=== PATIENT | female | born 1960 | race African-American/Black ===

== ENCOUNTER 2018-05-29 09:06 | Emergency (ER) | payer MEDICAID, MEDICARE, OTHER ==
[~2018-05-29] VITALS: Ht 172.7 cm; Wt 120.0 kg
[~2018-05-29 09:06] MED LIST: CODEINE; IBUPROFEN
[2018-05-29 12:05] LABS: PARTIAL THROMBOPLASTIN TIME 28.9 sec (23.4-31.0); PROTHROMBIN TIME 10.4 sec (9.1-11.1)
[2018-05-29 12:10] LABS: BASOPHILS % 1.3 % (0.0-2.0); EOSINOPHILS % 1.2 % (0.0-5.0); HEMATOCRIT. 35.1 % (36.0-48.0); HEMOGLOBIN. 11.4 g/dL (12.0-16.0); LYMPHOCYTES % 23.2 % (20.0-50.0); MEAN CORPUSCULAR HEMOGLOBIN 28.9 pg (28.0-32.0); MEAN CORPUSCULAR VOLUME 89.1 fL (81.0-99.0); MEAN PLATELET VOLUME 10.2 fl (7.4-10.4); MONOCYTES % 7.8 % (2.0-8.0); NEUTROPHILS % 66.5 % (40.0-76.0); PLATELET 360 x1000/uL (130-400); RED BLOOD CELL COUNT 3.94 mill/uL (4.2-5.4); RED CELL DISTRIBUTION WIDTH 14.8 % (11.6-14.6)
[2018-05-29 12:15] LABS: CHLORIDE 102 mEq/L (98-107)
[2018-05-29 13:00] VITALS: BP 122/55
[2018-05-29] MEDS ORDERED: IOHEXOL-300 100 ML BOTTLE ONE (16:06)
== END 2018-05-29 15:52 | disposition home or self-care (01) ==
LOC: ER 09:31
DX: R10.9 Unspecified abdominal pain (principal); F12.10 Cannabis abuse, uncomplicated; Z87.891 Personal history of nicotine dependence; Z79.899 Other long term (current) drug therapy
CPT/HCPCS: 36415; 74177; 80053; 85025; 85610; 85730; 86850; 86900; 86901; 99284; Q9967

== ENCOUNTER 2018-07-08 09:30 | Day surgery (SDC) | payer MEDICARE ==
[2018-07-08] VITALS (17 sets, daily range): BP systolic 119–163; BP diastolic 56–99
[~2018-07-08] VITALS: Ht 170.2 cm; Wt 97.1 kg
[2018-07-08] MEDS ORDERED: FENTANYL CITRATE/PF 50MCG/ML 2ML VIAL ONE (09:44)
[2018-07-08] MEDS ORDERED: SODIUM BICARBONATE 4% (2.4MEQ) 5ML VIAL IV ONE (09:46)
[2018-07-08] MEDS ORDERED: LIDOCAINE HCL 1% 20ML VIAL (Pyxis) INJ ONE (09:46)
[2018-07-08] MEDS ORDERED: TRAM300C3 PO (10:32)
[2018-07-08] MEDS ORDERED: FENTANYL CITRATE/PF 50MCG/ML 2ML VIAL IV ONE ×2 (10:45→11:15)
[2018-07-08] MEDS ORDERED: FENTANYL CITRATE/PF 50MCG/ML 2ML VIAL IV SCH ×2 (11:30)
== END 2018-07-08 15:00 | disposition home or self-care (01) ==
LOC: RAD 09:30
PROVIDERS: ATTEND Internal Medicine Pulmonary Disease
DX: D49.1 Neoplasm of unspecified behavior of respiratory system (principal); F12.90 Cannabis use, unspecified, uncomplicated; Z79.1 Long term (current) use of non-steroidal anti-inflammatories (NSAID); Z79.899 Other long term (current) drug therapy; Z87.891 Personal history of nicotine dependence; Z98.890 Other specified postprocedural states
CPT/HCPCS: 32405; 71045; 77012; 88305; 99152; 99153; J3010; J3490; J7050; G0500

== ENCOUNTER → 2018-08-28 | Day surgery (SDC) | payer MEDICARE ==
[2018-08-28] VITALS (18 sets, daily range): BP systolic 107–125; BP diastolic 51–81
[~2018-08-28] VITALS: Ht 170.2 cm; Wt 88.5 kg
[~2018-08-28] MED LIST changes: +CEFAZOLIN 1000MG PREMIX 50 ML IV ONE; +FENTANYL CITRATE/PF 50MCG/ML 2ML VIAL IV ONE; +FENTANYL CITRATE/PF 50MCG/ML 2ML VIAL ONE; +LIDOCAINE HCL 1% 20ML VIAL (Pyxis) INJ ONE; +LIDOCAINE HCL/EPINEPHRINE 1%-EPI 1:100,000 20 ML VIAL ONE; +SODIUM BICARBONATE 4% (2.4MEQ) 5ML VIAL IV ONE; +TRAM300C3 PO
== END | disposition home or self-care (01) ==
LOC: RAD 08:35
PROVIDERS: ATTEND Internal Medicine Hematology & Oncology
DX: C34.31 Malignant neoplasm of lower lobe, right bronchus or lung (principal); Z79.899 Other long term (current) drug therapy
CPT/HCPCS: 36561; 77001; 99152; 99153; J3010; J3490; J0690; J7050; G0500

== ENCOUNTER → 2018-10-07 | Day surgery (SDC) | payer MEDICARE, MEDICAID, OTHER ==
[~2018-10-07] MED LIST changes: -CEFAZOLIN 1000MG PREMIX 50 ML IV ONE; -FENTANYL CITRATE/PF 50MCG/ML 2ML VIAL IV ONE; -FENTANYL CITRATE/PF 50MCG/ML 2ML VIAL ONE; +IOHEXOL-300 50 ML BOTTLE IV ONE; -LIDOCAINE HCL 1% 20ML VIAL (Pyxis) INJ ONE; -LIDOCAINE HCL/EPINEPHRINE 1%-EPI 1:100,000 20 ML VIAL ONE; +OMEP20CA5 PO; -SODIUM BICARBONATE 4% (2.4MEQ) 5ML VIAL IV ONE; +[UNRECOGNIZED DRUG - REMARK] PO
== END | disposition home or self-care (01) ==
LOC: LAB 09:35
PROVIDERS: ATTEND Internal Medicine Hematology & Oncology
DX: T82.898A Other specified complication of vascular prosthetic devices, implants and grafts, initial encounter (principal); C34.31 Malignant neoplasm of lower lobe, right bronchus or lung; J44.9 Chronic obstructive pulmonary disease, unspecified; Z87.891 Personal history of nicotine dependence; Z79.899 Other long term (current) drug therapy; Y83.8 Other surgical procedures as the cause of abnormal reaction of the patient, or of later complication, without mention of misadventure at the time of the procedure; Y92.89 Other specified places as the place of occurrence of the external cause
CPT/HCPCS: 36010; 75827; Q9967

== ENCOUNTER 2018-11-05 13:45 | Inpatient (IN) | payer MEDICARE, OTHER ==
[2018-11-04 20:00] VITALS: BP 136/71
[~2018-11-05] VITALS: Ht 170.2 cm; Wt 77.1 kg
[2018-11-05 13:45] VITALS: BP 139/94
[~2018-11-05 13:45] MED LIST changes: -CODEINE; -IBUPROFEN; -IOHEXOL-300 50 ML BOTTLE IV ONE
[2018-11-05] MEDS ORDERED: CLONIDINE 0.1MG TABLET PO PRN (15:15)
[2018-11-05] MEDS ORDERED: DEXTROSE 50% WATER 50ML SYRINGE IV PRN (15:15)
[2018-11-05] MEDS: INSULIN LISPRO 100 UNITS/ML SUBCUT SCH ×2 (17:00→20:33)
[2018-11-05] MEDS: BLOOD SUGAR DIAGNOSTIC STRIP TEST SCH ×2 (17:00→20:33)
[2018-11-05] MEDS: HYDROCODONE/ACETAMINOPHEN 5/325MG TABLET PO PRN (17:59)
[2018-11-05 20:00] VITALS: BP 136/71
[2018-11-05] MEDS: FAMOTIDINE 20MG TABLET PO SCH (20:25)
[2018-11-06] MEDS: BLOOD SUGAR DIAGNOSTIC STRIP TEST SCH ×4 (06:17→20:24)
[2018-11-06] MEDS: INSULIN LISPRO 100 UNITS/ML SUBCUT SCH ×4 (06:49→20:24)
[2018-11-06] MEDS: ENOXAPARIN 40MG/0.4ML SYR SUBCUT SCH (08:52)
[2018-11-06] MEDS: FAMOTIDINE 20MG TABLET PO SCH ×2 (08:52→20:17)
[2018-11-06] MEDS: HYDROCODONE/ACETAMINOPHEN 5/325MG TABLET PO PRN ×3 (08:52→20:18)
[2018-11-06] MEDS ORDERED: DOCUSATE SODIUM 100MG CAPSULE PO PRN (10:30)
[2018-11-06] MEDS: ZINC SULFATE 220 MG ( 50 ) CAPSULE PO SCH (11:59)
[2018-11-06] MEDS: ASCORBIC ACID 500 MG TABLET PO SCH (11:59)
[2018-11-06 20:00] VITALS: BP 133/87
[2018-11-07] MEDS: BLOOD SUGAR DIAGNOSTIC STRIP TEST SCH ×4 (06:36→21:15)
[2018-11-07] MEDS: INSULIN LISPRO 100 UNITS/ML SUBCUT SCH ×4 (06:36→21:00)
[2018-11-07 07:45] LABS: BASOPHILS % 0.9 % (0.0-2.0); EOSINOPHILS % 1.8 % (0.0-5.0); HEMATOCRIT. 30.3 % (36.0-48.0); HEMOGLOBIN. 9.9 g/dL (12.0-16.0); LYMPHOCYTES % 10.9 % (20.0-50.0); MEAN CORPUSCULAR HEMOGLOBIN 28.6 pg (28.0-32.0); MEAN CORPUSCULAR VOLUME 87.2 fL (81.0-99.0); MEAN PLATELET VOLUME 7.7 fl (7.4-10.4); NEUTROPHILS % 76.4 % (40.0-76.0); PLATELET 257 x1000/uL (130-400); RED BLOOD CELL COUNT 3.47 mill/uL (4.2-5.4); RED CELL DISTRIBUTION WIDTH 21.3 % (11.6-14.6)
[2018-11-07 07:55] LABS: CHLORIDE 103 mEq/L (98-107)
[2018-11-07 07:56] VITALS: BP 130/85
[2018-11-07 08:02] LABS: TOTAL IRON BINDING CAPACITY 191 ug/dL (250-450)
[2018-11-07] MEDS: FAMOTIDINE 20MG TABLET PO SCH ×2 (08:09→21:15)
[2018-11-07] MEDS: ASCORBIC ACID 500 MG TABLET PO SCH (08:10)
[2018-11-07] MEDS: ENOXAPARIN 40MG/0.4ML SYR SUBCUT SCH (08:10)
[2018-11-07] MEDS: ZINC SULFATE 220 MG ( 50 ) CAPSULE PO SCH (08:10)
[2018-11-07] MEDS: HYDROCODONE/ACETAMINOPHEN 5/325MG TABLET PO PRN ×3 (08:11→17:32)
[2018-11-07 08:14] LABS: FOLIC ACID (FOLATE) SERUM 7.3 ng/mL (>5.38)
[2018-11-07 20:00] VITALS: BP 114/76
[2018-11-08 08:00] VITALS: BP 128/78
[2018-11-08] MEDS: ACETAMINOPHEN 325MG TABLET PO PRN (08:38)
[2018-11-08] MEDS: FAMOTIDINE 20MG TABLET PO SCH ×2 (08:38→20:52)
[2018-11-08] MEDS: ENOXAPARIN 40MG/0.4ML SYR SUBCUT SCH (08:39)
[2018-11-08] MEDS: ZINC SULFATE 220 MG ( 50 ) CAPSULE PO SCH (08:39)
[2018-11-08] MEDS: ASCORBIC ACID 500 MG TABLET PO SCH (08:39)
[2018-11-08] MEDS: INSULIN LISPRO 100 UNITS/ML SUBCUT SCH ×4 (08:44→21:00)
[2018-11-08] MEDS: BLOOD SUGAR DIAGNOSTIC STRIP TEST SCH ×3 (11:37→21:00)
[2018-11-08] MEDS: HYDROCODONE/ACETAMINOPHEN 5/325MG TABLET PO PRN ×2 (16:43→20:54)
[2018-11-08 20:00] VITALS: BP 128/80
[2018-11-09] MEDS: HYDROCODONE/ACETAMINOPHEN 5/325MG TABLET PO PRN ×4 (02:59→21:18)
[2018-11-09] MEDS: BLOOD SUGAR DIAGNOSTIC STRIP TEST SCH ×4 (05:55→21:00)
[2018-11-09 07:57] VITALS: BP 141/95
[2018-11-09] MEDS: ONDANSETRON HCL 4MG TABLET PO PRN (07:57)
[2018-11-09] MEDS: FAMOTIDINE 20MG TABLET PO SCH ×2 (08:50→21:19)
[2018-11-09] MEDS: ASCORBIC ACID 500 MG TABLET PO SCH (08:50)
[2018-11-09] MEDS: ZINC SULFATE 220 MG ( 50 ) CAPSULE PO SCH (08:50)
[2018-11-09] MEDS: ENOXAPARIN 40MG/0.4ML SYR SUBCUT SCH (08:51)
[2018-11-09] MEDS: INSULIN LISPRO 100 UNITS/ML SUBCUT SCH ×4 (08:53→21:00)
[2018-11-09] MEDS ORDERED: POTASSIUM CHLORIDE 20MEQ TABLET SR PO NR (09:45)
[2018-11-09 20:00] VITALS: BP 129/96
[2018-11-10] MEDS: HYDROCODONE/ACETAMINOPHEN 5/325MG TABLET PO PRN ×4 (05:34→19:52)
[2018-11-10] MEDS: FAMOTIDINE 20MG TABLET PO SCH ×2 (05:34→20:41)
[2018-11-10] MEDS: BLOOD SUGAR DIAGNOSTIC STRIP TEST SCH ×4 (06:30→20:43)
[2018-11-10 07:25] LABS: HEMATOCRIT 30.6 % (36.0-48.0); HEMOGLOBIN 10.2 g/dL (12.0-16.0); MEAN CORPUSCULAR HEMOGLOBIN 29.6 pg (28.0-32.0); MEAN CORPUSCULAR VOLUME 88.4 fL (81.0-99.0); PLATELET 292 x1000/uL (130-400); RED BLOOD CELL COUNT 3.46 mill/uL (4.2-5.4); RED CELL DISTRIBUTION WIDTH 20.4 % (11.6-14.6)
[2018-11-10 07:26] LABS: CHLORIDE 102 mEq/L (98-107)
[2018-11-10 07:58] VITALS: BP 130/81
[2018-11-10] MEDS: ZINC SULFATE 220 MG ( 50 ) CAPSULE PO SCH (08:43)
[2018-11-10] MEDS: ONDANSETRON HCL 4MG TABLET PO PRN ×3 (08:43→19:52)
[2018-11-10] MEDS: POTASSIUM CHLORIDE 20MEQ TABLET SR PO SCH (08:43)
[2018-11-10] MEDS: ASCORBIC ACID 500 MG TABLET PO SCH (08:43)
[2018-11-10] MEDS: ENOXAPARIN 40MG/0.4ML SYR SUBCUT SCH (08:43)
[2018-11-10] MEDS: INSULIN LISPRO 100 UNITS/ML SUBCUT SCH ×4 (08:45→20:43)
[2018-11-10 20:00] VITALS: BP 142/89
[2018-11-11] MEDS: ONDANSETRON HCL 4MG TABLET PO PRN ×3 (02:24→12:40)
[2018-11-11] MEDS: HYDROCODONE/ACETAMINOPHEN 5/325MG TABLET PO PRN ×3 (02:30→22:11)
[2018-11-11] MEDS: BLOOD SUGAR DIAGNOSTIC STRIP TEST SCH ×4 (06:19→21:47)
[2018-11-11] MEDS: INSULIN LISPRO 100 UNITS/ML SUBCUT SCH ×4 (06:19→21:00)
[2018-11-11 08:00] VITALS: BP 133/78
[2018-11-11] MEDS: ASCORBIC ACID 500 MG TABLET PO SCH (08:59)
[2018-11-11] MEDS: ZINC SULFATE 220 MG ( 50 ) CAPSULE PO SCH (08:59)
[2018-11-11] MEDS: POTASSIUM CHLORIDE 20MEQ TABLET SR PO SCH (08:59)
[2018-11-11] MEDS: FAMOTIDINE 20MG TABLET PO SCH ×2 (08:59→21:47)
[2018-11-11] MEDS: ENOXAPARIN 40MG/0.4ML SYR SUBCUT SCH (09:00)
[2018-11-11] MEDS ORDERED: ENOXAPARIN 30MG/0.3ML SYR SUBCUT NR (09:45)
[2018-11-11 11:29] LABS: BASOPHILS % 0.9 % (0.0-2.0); EOSINOPHILS % 0.3 % (0.0-5.0); HEMATOCRIT. 31.5 % (36.0-48.0); HEMOGLOBIN. 10.3 g/dL (12.0-16.0); LYMPHOCYTES % 12.1 % (20.0-50.0); MEAN CORPUSCULAR HEMOGLOBIN 28.4 pg (28.0-32.0); MEAN CORPUSCULAR VOLUME 86.9 fL (81.0-99.0); MEAN PLATELET VOLUME 8.3 fl (7.4-10.4); MONOCYTES % 8.2 % (2.0-8.0); NEUTROPHILS % 78.5 % (40.0-76.0); PLATELET 348 x1000/uL (130-400); RED BLOOD CELL COUNT 3.62 mill/uL (4.2-5.4); RED CELL DISTRIBUTION WIDTH 21.2 % (11.6-14.6)
[2018-11-11 11:37] LABS: INR 1.2; PROTHROMBIN TIME 11.9 sec (9.6-11.0)
[2018-11-11 11:40] LABS: CHLORIDE 97 mEq/L (98-107)
[2018-11-11] MEDS ORDERED: METOCLOPRAMIDE HCL 10MG/2ML VIAL IV PRN (15:45)
[2018-11-11 20:00] VITALS: BP 126/78
[2018-11-11] MEDS: ENOXAPARIN 80MG/0.8ML SYR SUBCUT SCH (21:47)
[2018-11-12] MEDS: BLOOD SUGAR DIAGNOSTIC STRIP TEST SCH ×5 (06:19→21:15)
[2018-11-12 08:00] VITALS: BP 143/83
[2018-11-12] MEDS: INSULIN LISPRO 100 UNITS/ML SUBCUT SCH ×4 (09:00→21:00)
[2018-11-12] MEDS: FAMOTIDINE 20MG TABLET PO SCH ×2 (10:03→21:15)
[2018-11-12] MEDS: ZINC SULFATE 220 MG ( 50 ) CAPSULE PO SCH (10:03)
[2018-11-12] MEDS: ASCORBIC ACID 500 MG TABLET PO SCH (10:03)
[2018-11-12] MEDS: POTASSIUM CHLORIDE 20MEQ TABLET SR PO SCH (10:03)
[2018-11-12] MEDS: ENOXAPARIN 80MG/0.8ML SYR SUBCUT SCH ×2 (10:04→21:16)
[2018-11-12] MEDS: ACETAMINOPHEN 325MG TABLET PO PRN (10:04)
[2018-11-12] MEDS: METOCLOPRAMIDE HCL 5MG TABLET PO SCH ×3 (11:21→21:15)
[2018-11-12] MEDS: HYDROCODONE/ACETAMINOPHEN 5/325MG TABLET PO PRN (14:48)
[2018-11-12 20:00] VITALS: BP 146/92
[2018-11-13] MEDS: BLOOD SUGAR DIAGNOSTIC STRIP TEST SCH ×4 (06:00→20:55)
[2018-11-13] MEDS: METOCLOPRAMIDE HCL 5MG TABLET PO SCH ×4 (06:01→20:53)
[2018-11-13] MEDS: INSULIN LISPRO 100 UNITS/ML SUBCUT SCH ×4 (06:01→20:55)
[2018-11-13 08:11] VITALS: BP 132/89
[2018-11-13] MEDS: POTASSIUM CHLORIDE 20MEQ TABLET SR PO SCH (08:21)
[2018-11-13] MEDS: FAMOTIDINE 20MG TABLET PO SCH ×2 (08:21→20:53)
[2018-11-13] MEDS: ENOXAPARIN 80MG/0.8ML SYR SUBCUT SCH (08:21)
[2018-11-13] MEDS: ZINC SULFATE 220 MG ( 50 ) CAPSULE PO SCH (08:21)
[2018-11-13] MEDS: ACETAMINOPHEN 325MG TABLET PO PRN ×2 (08:21→22:36)
[2018-11-13] MEDS: ASCORBIC ACID 500 MG TABLET PO SCH (08:21)
[2018-11-13] MEDS: HYDROCODONE/ACETAMINOPHEN 5/325MG TABLET PO PRN (15:05)
[2018-11-13] MEDS: APIXABAN 5 MG TABLET PO SCH (17:13)
[2018-11-13 20:00] VITALS: BP 138/89
[2018-11-14] MEDS: METOCLOPRAMIDE HCL 5MG TABLET PO SCH ×4 (05:56→20:50)
[2018-11-14] MEDS: BLOOD SUGAR DIAGNOSTIC STRIP TEST SCH ×4 (05:56→20:54)
[2018-11-14] MEDS: INSULIN LISPRO 100 UNITS/ML SUBCUT SCH ×4 (05:58→20:53)
[2018-11-14 07:53] VITALS: BP 129/80
[2018-11-14] MEDS: ASCORBIC ACID 500 MG TABLET PO SCH (08:15)
[2018-11-14] MEDS: POTASSIUM CHLORIDE 20MEQ TABLET SR PO SCH (08:15)
[2018-11-14] MEDS: FAMOTIDINE 20MG TABLET PO SCH ×2 (08:16→20:50)
[2018-11-14] MEDS: APIXABAN 5 MG TABLET PO SCH ×2 (08:16→16:02)
[2018-11-14] MEDS: ZINC SULFATE 220 MG ( 50 ) CAPSULE PO SCH (08:16)
[2018-11-14 09:29] LABS: BASOPHILS % 1.1 % (0.0-2.0); EOSINOPHILS % 0.7 % (0.0-5.0); HEMATOCRIT. 28.9 % (36.0-48.0); HEMOGLOBIN. 9.6 g/dL (12.0-16.0); LYMPHOCYTES % 13.5 % (20.0-50.0); MEAN CORPUSCULAR HEMOGLOBIN 29.3 pg (28.0-32.0); MEAN CORPUSCULAR VOLUME 88.3 fL (81.0-99.0); MEAN PLATELET VOLUME 8.3 fl (7.4-10.4); MONOCYTES % 10.5 % (2.0-8.0); NEUTROPHILS % 74.2 % (40.0-76.0); PLATELET 337 x1000/uL (130-400); RED BLOOD CELL COUNT 3.28 mill/uL (4.2-5.4); RED CELL DISTRIBUTION WIDTH 20.3 % (11.6-14.6)
[2018-11-14 09:33] LABS: CHLORIDE 99 mEq/L (98-107)
[2018-11-14] MEDS: HYDROCODONE/ACETAMINOPHEN 5/325MG TABLET PO PRN (11:59)
[2018-11-14] MEDS: ACETAMINOPHEN 325MG TABLET PO PRN (16:47)
[2018-11-14 20:00] VITALS: BP 118/64
[2018-11-15] MEDS: HYDROCODONE/ACETAMINOPHEN 5/325MG TABLET PO PRN ×3 (01:17→22:47)
[2018-11-15] MEDS: BLOOD SUGAR DIAGNOSTIC STRIP TEST SCH (06:21)
[2018-11-15] MEDS: INSULIN LISPRO 100 UNITS/ML SUBCUT SCH (06:21)
[2018-11-15] MEDS: METOCLOPRAMIDE HCL 5MG TABLET PO SCH ×4 (06:21→20:20)
[2018-11-15 08:00] VITALS: BP 129/84
[2018-11-15] MEDS: APIXABAN 5 MG TABLET PO SCH ×2 (08:15→16:26)
[2018-11-15] MEDS: FAMOTIDINE 20MG TABLET PO SCH ×2 (08:15→20:20)
[2018-11-15] MEDS: ACETAMINOPHEN 325MG TABLET PO PRN (08:15)
[2018-11-15] MEDS: POTASSIUM CHLORIDE 20MEQ TABLET SR PO SCH (08:15)
[2018-11-15] MEDS: ZINC SULFATE 220 MG ( 50 ) CAPSULE PO SCH (08:15)
[2018-11-15] MEDS: ASCORBIC ACID 500 MG TABLET PO SCH (08:15)
[2018-11-15 20:00] VITALS: BP 127/80
[2018-11-16] MEDS: METOCLOPRAMIDE HCL 5MG TABLET PO SCH ×4 (06:06→21:54)
[2018-11-16 08:10] VITALS: BP 133/88
[2018-11-16] MEDS: HYDROCODONE/ACETAMINOPHEN 5/325MG TABLET PO PRN ×3 (08:23→21:59)
[2018-11-16] MEDS: ASCORBIC ACID 500 MG TABLET PO SCH (08:50)
[2018-11-16] MEDS: FAMOTIDINE 20MG TABLET PO SCH ×2 (08:50→21:54)
[2018-11-16] MEDS: POTASSIUM CHLORIDE 20MEQ TABLET SR PO SCH (08:50)
[2018-11-16] MEDS: ZINC SULFATE 220 MG ( 50 ) CAPSULE PO SCH (08:50)
[2018-11-16] MEDS: APIXABAN 5 MG TABLET PO SCH ×2 (08:50→16:25)
[2018-11-16] MEDS ORDERED: ASCO-339 MT (16:21)
[2018-11-16] MEDS ORDERED: TRAM300C3 MT (16:21)
[2018-11-16] MEDS ORDERED: MULT-1195 MT (16:21)
[2018-11-16] MEDS ORDERED: ONDA4TAB5 MT (16:21)
[2018-11-16 20:00] VITALS: BP 150/87
[2018-11-17] MEDS: METOCLOPRAMIDE HCL 5MG TABLET PO SCH ×2 (05:57→11:29)
[2018-11-17 08:04] VITALS: BP 128/91
[2018-11-17] MEDS: POTASSIUM CHLORIDE 20MEQ TABLET SR PO SCH (08:52)
[2018-11-17] MEDS: FAMOTIDINE 20MG TABLET PO SCH (08:52)
[2018-11-17] MEDS: ASCORBIC ACID 500 MG TABLET PO SCH (08:52)
[2018-11-17] MEDS: ZINC SULFATE 220 MG ( 50 ) CAPSULE PO SCH (08:52)
[2018-11-17] MEDS: APIXABAN 5 MG TABLET PO SCH (09:00)
[2018-11-17] MEDS: HYDROCODONE/ACETAMINOPHEN 5/325MG TABLET PO PRN (09:32)
[2018-11-17 10:06] VITALS: BP 128/91
[2018-11-20] MEDS ORDERED: APIXABAN 5 MG TABLET PO SCH (17:00)
== END 2018-11-17 11:40 | disposition home health service (06) | DRG 919 ==
PROVIDERS: ADMIT Psychiatry & Neurology Neurology; ATTEND Internal Medicine Pulmonary Disease
DX: T81.31XA Disruption of external operation (surgical) wound, not elsewhere classified, initial encounter (principal); E43 Unspecified severe protein-calorie malnutrition; K56.1 Intussusception; C34.31 Malignant neoplasm of lower lobe, right bronchus or lung; C49.A0 Gastrointestinal stromal tumor, unspecified site; E87.1 Hypo-osmolality and hyponatremia; I82.411 Acute embolism and thrombosis of right femoral vein; I82.501 Chronic embolism and thrombosis of unspecified deep veins of right lower extremity; J98.11 Atelectasis; K91.89 Other postprocedural complications and disorders of digestive system; K56.7 Ileus, unspecified; R62.7 Adult failure to thrive; D49.0 Neoplasm of unspecified behavior of digestive system; E87.6 Hypokalemia; K80.20 Calculus of gallbladder without cholecystitis without obstruction; D25.9 Leiomyoma of uterus, unspecified; D50.9 Iron deficiency anemia, unspecified; D63.8 Anemia in other chronic diseases classified elsewhere; E83.51 Hypocalcemia; E87.8 Other disorders of electrolyte and fluid balance, not elsewhere classified; F32.9 Major depressive disorder, single episode, unspecified; F41.9 Anxiety disorder, unspecified; K21.9 Gastro-esophageal reflux disease without esophagitis; K57.90 Diverticulosis of intestine, part unspecified, without perforation or abscess without bleeding; R53.81 Other malaise; K76.0 Fatty (change of) liver, not elsewhere classified; Z79.01 Long term (current) use of anticoagulants; Z85.118 Personal history of other malignant neoplasm of bronchus and lung; Z92.3 Personal history of irradiation; Z92.21 Personal history of antineoplastic chemotherapy; Z68.26 Body mass index [BMI] 26.0-26.9, adult; Z90.49 Acquired absence of other specified parts of digestive tract
CPT/HCPCS: 36415; 74176; 80048; 82607; 82746; 82962; 83540; 83550; 84134; 85018; 85027; 92610; 93970; 97110; 97112; 97116; 97150; 97162; 97166; 97530; 97535; J1650; J2765; J8597; Q0162

== ENCOUNTER 2019-01-18 19:19 | Inpatient (IN) | payer MEDICARE, OTHER ==
[~2019-01-18] VITALS: Ht 175.3 cm; Wt 72.1 kg
[2019-01-18 02:30] VITALS: BP 127/94
[~2019-01-18 19:19] MED LIST changes: +ASCO-339 MT; +MULT-1195 MT; +ONDA4TAB5 MT; +TRAM300C3 MT; -TRAM300C3 PO; -[UNRECOGNIZED DRUG - REMARK] PO
[2019-01-18] MEDS ORDERED: SODIUM CHLORIDE 0.9% 1,000 ML IV ONE (20:40)
[2019-01-18 21:03] LABS: BG BASE EXCESS -2.2 mmol/L (-2.0-2.0); BG CARBOXYHEMOGLOBIN 0.3 % (0.5-1.5); BG DEOXYHEMOGLOBIN 3.6 % (0.0-5.0); BG FRACTION INSPIRED OXYGEN 21; BG HCO3 ACT 21.8 mmol/L (22.0-26.0); BG METHEMOGLOBIN 0.3 % (0.0-1.5); BG OXYGEN SATURATION 96.4 % (92.0-98.5); BG OXYHEMOGLOBIN 95.8 % (94.0-97.0); BG PH 7.424 (7.350-7.450); BG PO2 88.9 mmHg (75.0-100.0); BG SAMPLE SITE RIGHT BRACHIAL; BG VENT MODE ROOM AIR
[2019-01-18 21:08] LABS: CHLORIDE 97 mEq/L (98-107)
[2019-01-18 21:13] LABS: BASOPHILS % 0.1 % (0.0-2.0); EOSINOPHILS % 0.1 % (0.0-5.0); HEMATOCRIT. 26.4 % (36.0-48.0); HEMOGLOBIN. 8.7 g/dL (12.0-16.0); LYMPHOCYTES % 14.5 % (20.0-50.0); MEAN CORPUSCULAR HEMOGLOBIN 29.1 pg (28.0-32.0); MEAN CORPUSCULAR VOLUME 88.5 fL (81.0-99.0); MEAN PLATELET VOLUME 7.5 fl (7.4-10.4); MONOCYTES % 5.8 % (2.0-8.0); NEUTROPHILS % 79.5 % (40.0-76.0); PLATELET 428 x1000/uL (130-400); RED BLOOD CELL COUNT 2.99 mill/uL (4.2-5.4); RED CELL DISTRIBUTION WIDTH 18.6 % (11.6-14.6)
[2019-01-18] MEDS ORDERED: LEVETIRACETAM 500MG PREMIX 100 ML IV ONE (22:30)
[2019-01-18] MEDS ORDERED: DEXTROSE 50% WATER 50ML SYRINGE IV ONE (22:45)
[2019-01-18] MEDS ORDERED: VANCOMYCIN 1 G PREMIX 200 ML IV ONE (23:15)
[2019-01-18] MEDS ORDERED: SODIUM CHLORIDE 0.9% 1000ML BAG (SEPSIS BOLUS) IV ONE (23:15)
[2019-01-18] MEDS ORDERED: PIPERACILLIN/TAZ 3.375G PREMIX 50 ML IV ONE (23:15)
[2019-01-19 02:30] VITALS: BP 130/46
[2019-01-19 04:00] VITALS: BP 127/94
[2019-01-19] MEDS ORDERED: HYDROMORPHONE HCL 2MG TABLET PO PRN (04:00)
[2019-01-19] MEDS ORDERED: ONDANSETRON HCL 4MG TABLET PO PRN (04:00)
[2019-01-19] MEDS ORDERED: TRAMADOL 50MG TABLET PO PRN (04:00)
[2019-01-19] MEDS ORDERED: HYDR2TAB4 PO (04:08)
[2019-01-19] MEDS ORDERED: PHEN100C4 PO (04:08)
[2019-01-19] MEDS ORDERED: LAMO50TA3 PO (04:08)
[2019-01-19] MEDS ORDERED: SULF1TAB48 PO (04:08)
[2019-01-19] MEDS ORDERED: LEVE500S9 PO (04:08)
[2019-01-19] MEDS ORDERED: HYDR2TAB4 MT (04:08)
[2019-01-19] MEDS ORDERED: TOPUD PO (04:08)
[2019-01-19] MEDS ORDERED: POTA20TA82 PO (04:16)
[2019-01-19] MEDS ORDERED: OMEP20TA2 PO (04:16)
[2019-01-19] MEDS ORDERED: METO10TA3 PO (04:16)
[2019-01-19] MEDS ORDERED: ZINC220T4 PO (04:16)
[2019-01-19] MEDS ORDERED: ONDA4TAB50 PO (04:16)
[2019-01-19] MEDS ORDERED: METO-539 PO (04:16)
[2019-01-19] MEDS ORDERED: TRAM50TA3 PO (04:19)
[2019-01-19] MEDS ORDERED: TRAM100T34 PO (04:19)
[2019-01-19] MEDS ORDERED: MULT-1116 PO (04:22)
[2019-01-19] MEDS ORDERED: TRAMADOL HCL 100 MG PO PRN (04:30)
[2019-01-19] MEDS ORDERED: METOCLOPRAMIDE HCL 10MG TABLET PO SCH (06:00)
[2019-01-19] MEDS ORDERED: PHENYTOIN SODIUM EXTENDED 100MG CAPSULE PO SCH (06:00)
[2019-01-19] MEDS: METOPROLOL TARTRATE 50MG TABLET PO SCH ×3 (06:35→21:53)
[2019-01-19 08:00] VITALS: BP 136/44
[2019-01-19] MEDS ORDERED: SULFAMETHOXAZOLE/TRIMETHOPRIM 800/160MG TABLET PO SCH (09:00)
[2019-01-19] MEDS ORDERED: LEVETIRACETAM 500MG TABLET PO SCH (09:00)
[2019-01-19] MEDS ORDERED: POTASSIUM CHLORIDE 20MEQ TABLET SR PO SCH (09:00)
[2019-01-19] MEDS: OMEPRAZOLE 20MG CAPSULE EXTENDED RELEASE PO SCH (09:34)
[2019-01-19] MEDS: ZINC SULFATE 220 MG ( 50 ) CAPSULE PO SCH (09:34)
[2019-01-19] MEDS: MULTIVITAMINS,THER W-MINERALS TABLET PO SCH (09:34)
[2019-01-19] MEDS: ENOXAPARIN 40MG/0.4ML SYR SUBCUT SCH (09:35)
[2019-01-19 11:11] LABS: BASOPHILS % 0.4 % (0.0-2.0); EOSINOPHILS % 1.1 % (0.0-5.0); HEMATOCRIT. 24.8 % (36.0-48.0); HEMOGLOBIN. 8.2 g/dL (12.0-16.0); LYMPHOCYTES % 10.3 % (20.0-50.0); MEAN CORPUSCULAR HEMOGLOBIN 29.5 pg (28.0-32.0); MEAN CORPUSCULAR VOLUME 89.5 fL (81.0-99.0); MEAN PLATELET VOLUME 7.6 fl (7.4-10.4); MONOCYTES % 4.8 % (2.0-8.0); NEUTROPHILS % 83.4 % (40.0-76.0); PLATELET 422 x1000/uL (130-400); RED BLOOD CELL COUNT 2.77 mill/uL (4.2-5.4); RED CELL DISTRIBUTION WIDTH 18.9 % (11.6-14.6)
[2019-01-19 11:24] LABS: CHLORIDE 99 mEq/L (98-107)
[2019-01-19 12:00] VITALS: BP 135/91
[2019-01-19] MEDS ORDERED: ONDANSETRON HCL 4MG/2ML INJ IV PRN (17:30)
[2019-01-19] MEDS ORDERED: HYDROMORPHONE HCL/PF 2MG/ML CPJ IV PRN (17:43)
[2019-01-19] MEDS: METOCLOPRAMIDE HCL 10MG/2ML VIAL IV SCH ×2 (17:52→23:25)
[2019-01-19 20:00] VITALS: BP 126/81
[2019-01-19] MEDS: CEFTRIAXONE 1 G PREMIX 50 ML IV SCH (20:45)
[2019-01-19] MEDS: LEVETIRACETAM 1,000 MG in SODIUM CHLORIDE 0.9% 100 ML IV SCH (21:53)
[2019-01-19] MEDS: PHENYTOIN SODIUM 100MG/2ML VIAL IV SCH (21:55)
[2019-01-19] MEDS: DEXT 5%/0.45% NACL KCL 20MEQ/L 1,000 ML IV SCH (23:25)
[2019-01-20] VITALS: BP 116/72
[2019-01-20 04:00] VITALS: BP 100/72
[2019-01-20] MEDS: PHENYTOIN SODIUM 100MG/2ML VIAL IV SCH ×3 (06:00→21:19)
[2019-01-20] MEDS: METOCLOPRAMIDE HCL 10MG/2ML VIAL IV SCH ×3 (06:00→21:19)
[2019-01-20] MEDS: METOPROLOL TARTRATE 50MG TABLET PO SCH ×3 (06:00→21:31)
[2019-01-20 06:29] LABS: HEMOGLOBIN. 8.5 g/dL (12.0-16.0); MEAN CORPUSCULAR HEMOGLOBIN 29.7 pg (28.0-32.0); MEAN CORPUSCULAR VOLUME 90.8 fL (81.0-99.0); MEAN PLATELET VOLUME 7.8 fl (7.4-10.4); PLATELET 390 x1000/uL (130-400); RED BLOOD CELL COUNT 2.86 mill/uL (4.2-5.4); RED CELL DISTRIBUTION WIDTH 19.2 % (11.6-14.6)
[2019-01-20 07:38] LABS: CHLORIDE 99 mEq/L (98-107)
[2019-01-20 07:48] LABS: PHOSPHORUS 2.5 mg/dL (2.5-4.9)
[2019-01-20 08:00] VITALS: BP 120/87
[2019-01-20] MEDS ORDERED: SODIUM BICARBONATE 4% (2.4MEQ) 5ML VIAL IV ONE (09:16)
[2019-01-20] MEDS ORDERED: LIDOCAINE HCL 1% 20ML VIAL (Pyxis) INJ ONE (09:16)
[2019-01-20] MEDS: ENOXAPARIN 40MG/0.4ML SYR SUBCUT SCH (11:40)
[2019-01-20] MEDS: ZINC SULFATE 220 MG ( 50 ) CAPSULE PO SCH (11:40)
[2019-01-20] MEDS: LEVETIRACETAM 1,000 MG in SODIUM CHLORIDE 0.9% 100 ML IV SCH ×2 (11:40→21:19)
[2019-01-20] MEDS: OMEPRAZOLE 20MG CAPSULE EXTENDED RELEASE PO SCH (11:41)
[2019-01-20] MEDS: MULTIVITAMINS,THER W-MINERALS TABLET PO SCH (11:41)
[2019-01-20 12:00] VITALS: BP 117/82
[2019-01-20 14:36] LABS: PLATELET ESTIMATE NORMAL
[2019-01-20 16:00] VITALS: BP 138/79
[2019-01-20] MEDS: DEXT 5%/0.45% NACL KCL 20MEQ/L 1,000 ML IV SCH (17:23)
[2019-01-20 20:00] VITALS: BP 142/87
[2019-01-20] MEDS: CEFTRIAXONE 1 G PREMIX 50 ML IV SCH (21:20)
[2019-01-21] VITALS: BP 120/81
[2019-01-21 04:00] VITALS: BP 145/86
[2019-01-21] MEDS: METOPROLOL TARTRATE 50MG TABLET PO SCH ×3 (05:43→22:07)
[2019-01-21] MEDS: METOCLOPRAMIDE HCL 10MG/2ML VIAL IV SCH ×4 (05:49→18:26)
[2019-01-21] MEDS: PHENYTOIN SODIUM 100MG/2ML VIAL IV SCH ×3 (05:49→22:07)
[2019-01-21 07:07] LABS: INR 1.1; PARTIAL THROMBOPLASTIN TIME 23.8 sec (23.4-31.0); PROTHROMBIN TIME 10.9 sec (9.6-11.0)
[2019-01-21 07:13] LABS: HEMATOCRIT. 28.9 % (36.0-48.0); HEMOGLOBIN. 9.2 g/dL (12.0-16.0); MEAN CORPUSCULAR HEMOGLOBIN 28.9 pg (28.0-32.0); MEAN CORPUSCULAR VOLUME 90.3 fL (81.0-99.0); PLATELET 359 x1000/uL (130-400); RED BLOOD CELL COUNT 3.19 mill/uL (4.2-5.4); RED CELL DISTRIBUTION WIDTH 19.8 % (11.6-14.6)
[2019-01-21 07:37] LABS: CHLORIDE 101 mEq/L (98-107)
[2019-01-21 08:00] VITALS: BP 121/90
[2019-01-21] MEDS: MULTIVITAMINS,THER W-MINERALS TABLET PO SCH (09:00)
[2019-01-21] MEDS: ZINC SULFATE 220 MG ( 50 ) CAPSULE PO SCH (09:00)
[2019-01-21] MEDS: LEVETIRACETAM 1,000 MG in SODIUM CHLORIDE 0.9% 100 ML IV SCH ×2 (09:16→22:05)
[2019-01-21] MEDS: LORAZEPAM 2MG/ML CPJ IV NR ×2 (10:45→13:21)
[2019-01-21 13:41] LABS: PLATELET ESTIMATE NORMAL
[2019-01-21] MEDS ORDERED: MIDAZOLAM HCL 2 MG/2 ML VIAL IV PRN (13:48)
[2019-01-21] MEDS ORDERED: MIDAZOLAM HCL 5 MG/5 ML VIAL ONE (13:48)
[2019-01-21] MEDS ORDERED: FENTANYL CITRATE/PF 50MCG/ML 2ML VIAL ONE (13:48)
[2019-01-21] MEDS ORDERED: GADOBENATE DIMEGLUMINE 529 MG/ML 10ML IV ONE (15:26)
[2019-01-21] MEDS: DEXT 5%/0.45% NACL KCL 20MEQ/L 1,000 ML IV SCH ×2 (18:10→22:08)
[2019-01-21] MEDS: DEXAMETHASONE 4MG/ML 1ML VIAL IV SCH (18:26)
[2019-01-21 20:00] VITALS: BP 127/83
[2019-01-21] MEDS: CEFTRIAXONE 1 G PREMIX 50 ML IV SCH (20:38)
[2019-01-21] MEDS: OMEPRAZOLE 20MG CAPSULE EXTENDED RELEASE PO SCH (22:06)
[2019-01-22] VITALS: BP 121/92
[2019-01-22] MEDS: DEXAMETHASONE 4MG/ML 1ML VIAL IV SCH ×5 (00:24→23:32)
[2019-01-22] MEDS: METOCLOPRAMIDE HCL 10MG/2ML VIAL IV SCH ×5 (00:24→23:32)
[2019-01-22 04:00] VITALS: BP 137/84
[2019-01-22] MEDS: PHENYTOIN SODIUM 100MG/2ML VIAL IV SCH ×3 (05:30→22:47)
[2019-01-22] MEDS: METOPROLOL TARTRATE 50MG TABLET PO SCH ×3 (05:41→21:48)
[2019-01-22 08:00] VITALS: BP 130/75
[2019-01-22] MEDS: LEVETIRACETAM 1,000 MG in SODIUM CHLORIDE 0.9% 100 ML IV SCH ×2 (09:31→21:47)
[2019-01-22] MEDS: ZINC SULFATE 220 MG ( 50 ) CAPSULE PO SCH (09:32)
[2019-01-22] MEDS: DEXT 5%/0.45% NACL KCL 20MEQ/L 1,000 ML IV SCH (09:32)
[2019-01-22] MEDS: MULTIVITAMINS,THER W-MINERALS TABLET PO SCH (09:32)
[2019-01-22] MEDS: OMEPRAZOLE 20MG CAPSULE EXTENDED RELEASE PO SCH (09:39)
[2019-01-22] MEDS ORDERED: PHENYTOIN SODIUM 800 MG in SODIUM CHLORIDE 0.9% 100 ML IV SCH (11:00)
[2019-01-22] MEDS: LORAZEPAM 2MG/ML CPJ IV PRN (11:02)
[2019-01-22 12:00] VITALS: BP 128/79
[2019-01-22 16:00] VITALS: BP 118/79
[2019-01-22 20:00] VITALS: BP 121/80
[2019-01-22] MEDS: CEFTRIAXONE 1 G PREMIX 50 ML IV SCH (20:45)
[2019-01-23] VITALS: BP 118/89
[2019-01-23] MEDS: DEXT 5%/0.45% NACL KCL 20MEQ/L 1,000 ML IV SCH ×2 (01:38→13:14)
[2019-01-23 04:00] VITALS: BP 114/66
[2019-01-23] MEDS: METOCLOPRAMIDE HCL 10MG/2ML VIAL IV SCH ×4 (05:04→23:32)
[2019-01-23] MEDS: DEXAMETHASONE 4MG/ML 1ML VIAL IV SCH ×4 (05:04→23:32)
[2019-01-23] MEDS: PHENYTOIN SODIUM 100MG/2ML VIAL IV SCH ×3 (05:04→21:57)
[2019-01-23] MEDS: METOPROLOL TARTRATE 50MG TABLET PO SCH ×3 (05:27→21:08)
[2019-01-23 08:00] VITALS: BP_SYST 141; BP_SYST 214; BP_DIAS 72; BP_DIAS 98
[2019-01-23] MEDS: MULTIVITAMINS,THER W-MINERALS TABLET PO SCH (08:52)
[2019-01-23] MEDS: ZINC SULFATE 220 MG ( 50 ) CAPSULE PO SCH (08:52)
[2019-01-23] MEDS: LANSOPRAZOLE 30MG DR CAPSULE GT SCH (08:54)
[2019-01-23] MEDS: LEVETIRACETAM 1,000 MG in SODIUM CHLORIDE 0.9% 100 ML IV SCH ×2 (10:58→21:08)
[2019-01-23 12:30] VITALS: BP 131/107
[2019-01-23 16:00] VITALS: BP 109/45
[2019-01-23 20:00] VITALS: BP 128/86
[2019-01-23] MEDS: CEFTRIAXONE 1 G PREMIX 50 ML IV SCH (20:00)
[2019-01-24] VITALS: BP 131/64
[2019-01-24 04:00] VITALS: BP 127/83
[2019-01-24] MEDS: DEXT 5%/0.45% NACL KCL 20MEQ/L 1,000 ML IV SCH ×2 (05:11→16:09)
[2019-01-24] MEDS: METOCLOPRAMIDE HCL 10MG/2ML VIAL IV SCH ×3 (05:11→17:21)
[2019-01-24] MEDS: DEXAMETHASONE 4MG/ML 1ML VIAL IV SCH ×3 (05:11→17:21)
[2019-01-24] MEDS: PHENYTOIN SODIUM 100MG/2ML VIAL IV SCH ×2 (05:11→13:07)
[2019-01-24] MEDS: METOPROLOL TARTRATE 50MG TABLET PO SCH ×2 (05:12→13:06)
[2019-01-24 07:54] VITALS: BP 105/63
[2019-01-24] MEDS: LEVETIRACETAM 1,000 MG in SODIUM CHLORIDE 0.9% 100 ML IV SCH ×2 (08:45→22:35)
[2019-01-24] MEDS: LANSOPRAZOLE 30MG DR CAPSULE GT SCH (08:45)
[2019-01-24] MEDS: ZINC SULFATE 220 MG ( 50 ) CAPSULE PO SCH (08:45)
[2019-01-24] MEDS: MULTIVITAMINS,THER W-MINERALS TABLET PO SCH (08:46)
[2019-01-24 12:06] VITALS: BP_SYST 102; BP_SYST 133; BP_DIAS 80
[2019-01-24 16:20] VITALS: BP 150/60
[2019-01-25 00:25] VITALS: BP 122/72
[2019-01-25] MEDS: DEXAMETHASONE 4MG/ML 1ML VIAL IV SCH ×3 (01:04→11:13)
[2019-01-25] MEDS: CEFTRIAXONE 1 G PREMIX 50 ML IV SCH ×2 (01:04→21:50)
[2019-01-25] MEDS: PHENYTOIN SODIUM 100MG/2ML VIAL IV SCH ×4 (01:05→21:51)
[2019-01-25] MEDS: METOCLOPRAMIDE HCL 10MG/2ML VIAL IV SCH ×4 (01:05→19:20)
[2019-01-25] MEDS: METOPROLOL TARTRATE 50MG TABLET PO SCH ×4 (01:05→21:51)
[2019-01-25 04:00] VITALS: BP 124/79
[2019-01-25] MEDS: DEXT 5%/0.45% NACL KCL 20MEQ/L 1,000 ML IV SCH ×2 (06:57→21:51)
[2019-01-25 07:05] LABS: HEMATOCRIT. 27.2 % (36.0-48.0); HEMOGLOBIN. 8.9 g/dL (12.0-16.0); MEAN CORPUSCULAR HEMOGLOBIN 30.1 pg (28.0-32.0); MEAN CORPUSCULAR VOLUME 91.3 fL (81.0-99.0); PLATELET 309 x1000/uL (130-400); RED BLOOD CELL COUNT 2.97 mill/uL (4.2-5.4); RED CELL DISTRIBUTION WIDTH 20.6 % (11.6-14.6)
[2019-01-25 07:32] LABS: CHLORIDE 99 mEq/L (98-107)
[2019-01-25 08:00] VITALS: BP 91/48
[2019-01-25] MEDS: MULTIVITAMINS,THER W-MINERALS TABLET PO SCH (09:45)
[2019-01-25] MEDS: LANSOPRAZOLE 30MG DR CAPSULE GT SCH (09:45)
[2019-01-25] MEDS: ZINC SULFATE 220 MG ( 50 ) CAPSULE PO SCH (09:45)
[2019-01-25] MEDS: LEVETIRACETAM 1,000 MG in SODIUM CHLORIDE 0.9% 100 ML IV SCH ×2 (09:46→21:52)
[2019-01-25 12:11] VITALS: BP 121/88
[2019-01-25 15:16] LABS: PLATELET ESTIMATE NORMAL
[2019-01-25 16:27] VITALS: BP 117/70
[2019-01-25] MEDS ORDERED: DEXAMETHASONE 0.5MG/5ML ORAL SYR NG SCH (18:45)
[2019-01-25 20:00] VITALS: BP 114/77
[2019-01-25] MEDS: DEXAMETHASONE 4MG TABLET GT SCH (21:52)
[2019-01-25] MEDS: LORAZEPAM 2MG/ML CPJ IV PRN (22:33)
[2019-01-26] VITALS: BP 120/79
[2019-01-26] MEDS: METOCLOPRAMIDE HCL 10MG/2ML VIAL IV SCH ×4 (00:59→18:39)
[2019-01-26] MEDS: DEXAMETHASONE 4MG TABLET GT SCH ×4 (01:04→21:19)
[2019-01-26 04:00] VITALS: BP 113/80
[2019-01-26] MEDS: PHENYTOIN SODIUM 100MG/2ML VIAL IV SCH ×2 (05:05→15:02)
[2019-01-26] MEDS: METOPROLOL TARTRATE 50MG TABLET PO SCH ×3 (05:06→21:17)
[2019-01-26 08:00] VITALS: BP 108/74
[2019-01-26] MEDS: MULTIVITAMINS,THER W-MINERALS TABLET PO SCH (08:50)
[2019-01-26] MEDS: LANSOPRAZOLE 30MG DR CAPSULE GT SCH (08:50)
[2019-01-26] MEDS: ZINC SULFATE 220 MG ( 50 ) CAPSULE PO SCH (08:50)
[2019-01-26] MEDS: DEXT 5%/0.45% NACL KCL 20MEQ/L 1,000 ML IV SCH (08:51)
[2019-01-26] MEDS: LEVETIRACETAM 1,000 MG in SODIUM CHLORIDE 0.9% 100 ML IV SCH (08:51)
[2019-01-26] MEDS: LORAZEPAM 2MG/ML CPJ IV PRN (09:18)
[2019-01-26 12:00] VITALS: BP 110/79
[2019-01-26 16:00] VITALS: BP 96/48
[2019-01-26 20:00] VITALS: BP 112/71
[2019-01-26] MEDS ORDERED: LEVETIRACETAM 100MG/ML ORAL SYR NG SCH (21:00)
[2019-01-26] MEDS: CEFTRIAXONE 1 G PREMIX 50 ML IV SCH (21:16)
[2019-01-26] MEDS: LEVETIRACETAM 500MG/5ML CUP GT SCH (21:17)
[2019-01-26] MEDS: PHENYTOIN 100 MG/4 ML UDC NG SCH (21:17)
[2019-01-27] VITALS: BP 98/67
[2019-01-27] MEDS: DEXAMETHASONE 4MG TABLET GT SCH ×4 (01:30→20:32)
[2019-01-27] MEDS: METOCLOPRAMIDE HCL 10MG TABLET NG SCH ×5 (01:30→23:04)
[2019-01-27 04:00] VITALS: BP 116/73
[2019-01-27] MEDS: PHENYTOIN 100 MG/4 ML UDC NG SCH ×3 (05:38→20:32)
[2019-01-27] MEDS: METOPROLOL TARTRATE 50MG TABLET PO SCH ×3 (05:42→23:05)
[2019-01-27 08:00] VITALS: BP 111/76
[2019-01-27] MEDS: LEVETIRACETAM 500MG/5ML CUP GT SCH ×2 (08:38→20:32)
[2019-01-27] MEDS: LANSOPRAZOLE 30MG DR CAPSULE GT SCH (08:38)
[2019-01-27] MEDS: MULTIVITAMINS,THER W-MINERALS TABLET PO SCH (08:38)
[2019-01-27] MEDS: ZINC SULFATE 220 MG ( 50 ) CAPSULE PO SCH (08:38)
[2019-01-27 12:00] VITALS: BP 96/66
[2019-01-27 16:00] VITALS: BP 120/79
[2019-01-27 20:00] VITALS: BP 119/79
[2019-01-27] MEDS: ACETAMINOPHEN 325MG TABLET PO PRN (20:32)
[2019-01-28] MEDS: DEXAMETHASONE 4MG TABLET GT SCH ×4 (01:14→20:04)
[2019-01-28] MEDS: ACETAMINOPHEN 325MG TABLET PO PRN ×2 (03:51→20:05)
[2019-01-28 04:00] VITALS: BP 97/53
[2019-01-28] MEDS: METOPROLOL TARTRATE 50MG TABLET PO SCH ×2 (05:53→15:21)
[2019-01-28] MEDS: METOCLOPRAMIDE HCL 10MG TABLET NG SCH ×3 (05:57→17:51)
[2019-01-28] MEDS: PHENYTOIN 100 MG/4 ML UDC NG SCH ×2 (05:57→15:22)
[2019-01-28 08:00] VITALS: BP 131/68
[2019-01-28] MEDS: LEVETIRACETAM 500MG/5ML CUP GT SCH ×2 (09:25→20:04)
[2019-01-28] MEDS: MULTIVITAMINS,THER W-MINERALS TABLET PO SCH (09:26)
[2019-01-28] MEDS: ZINC SULFATE 220 MG ( 50 ) CAPSULE PO SCH (09:26)
[2019-01-28] MEDS: LANSOPRAZOLE 30MG DR CAPSULE GT SCH (09:26)
[2019-01-28 12:00] VITALS: BP 122/66
[2019-01-28 16:30] VITALS: BP 131/77
[2019-01-28 20:23] VITALS: BP 130/74
[2019-01-29] VITALS: BP 110/69
[2019-01-29] MEDS: PHENYTOIN 100 MG/4 ML UDC NG SCH ×3 (00:08→14:59)
[2019-01-29] MEDS: METOPROLOL TARTRATE 50MG TABLET PO SCH ×2 (00:08→05:51)
[2019-01-29] MEDS: METOCLOPRAMIDE HCL 10MG TABLET NG SCH ×3 (00:11→14:59)
[2019-01-29] MEDS: DEXAMETHASONE 4MG TABLET GT SCH ×3 (02:18→14:58)
[2019-01-29 04:00] VITALS: BP 111/70
[2019-01-29 08:00] VITALS: BP 97/58
[2019-01-29] MEDS: ZINC SULFATE 220 MG ( 50 ) CAPSULE PO SCH (08:45)
[2019-01-29] MEDS: LEVETIRACETAM 500MG/5ML CUP GT SCH (08:45)
[2019-01-29] MEDS: LANSOPRAZOLE 30MG DR CAPSULE GT SCH (08:45)
[2019-01-29] MEDS: MULTIVITAMINS,THER W-MINERALS TABLET PO SCH (08:45)
[2019-01-29] MEDS: ACETAMINOPHEN 325MG TABLET PO PRN (08:46)
[2019-01-29 12:00] VITALS: BP 112/59
[2019-01-29 12:43] VITALS: BP 112/59
== END 2019-01-29 16:18 | disposition home health service (06) | DRG 100 ==
LOC: ER 21:03 → 7WST 22:20 → MERGE 22:20 → ENRESERV 01-19 00:27 → 7WST 01-19 22:30
PROVIDERS: ADMIT Internal Medicine Pulmonary Disease; ATTEND Internal Medicine Pulmonary Disease
PROC: 02HV33Z Insertion of Infusion Device into Superior Vena Cava, Percutaneous Approach (ICD-10-PCS; 2019-01-20)
PROC: B5181ZA Fluoroscopy of Superior Vena Cava using Low Osmolar Contrast, Guidance (ICD-10-PCS; 2019-01-20)
PROC: B548ZZA Ultrasonography of Superior Vena Cava, Guidance (ICD-10-PCS; 2019-01-20)
PROC: 0DH63UZ Insertion of Feeding Device into Stomach, Percutaneous Approach (ICD-10-PCS; principal; 2019-01-21)
DX: G40.119 Localization-related (focal) (partial) symptomatic epilepsy and epileptic syndromes with simple partial seizures, intractable, without status epilepticus (principal); E43 Unspecified severe protein-calorie malnutrition; L02.211 Cutaneous abscess of abdominal wall; G93.40 Encephalopathy, unspecified; C18.9 Malignant neoplasm of colon, unspecified; C78.00 Secondary malignant neoplasm of unspecified lung; E87.1 Hypo-osmolality and hyponatremia; K22.10 Ulcer of esophagus without bleeding; C79.31 Secondary malignant neoplasm of brain; C34.91 Malignant neoplasm of unspecified part of right bronchus or lung; Z92.3 Personal history of irradiation; K80.20 Calculus of gallbladder without cholecystitis without obstruction; K21.9 Gastro-esophageal reflux disease without esophagitis; I10 Essential (primary) hypertension; G89.29 Other chronic pain; D63.8 Anemia in other chronic diseases classified elsewhere; K29.70 Gastritis, unspecified, without bleeding; Z93.1 Gastrostomy status; K76.0 Fatty (change of) liver, not elsewhere classified; R62.7 Adult failure to thrive; Z80.8 Family history of malignant neoplasm of other organs or systems; Z85.038 Personal history of other malignant neoplasm of large intestine; Z85.118 Personal history of other malignant neoplasm of bronchus and lung; Z87.891 Personal history of nicotine dependence; Z90.49 Acquired absence of other specified parts of digestive tract; Z91.19 Patient's noncompliance with other medical treatment and regimen; F32.9 Major depressive disorder, single episode, unspecified; Z51.5 Encounter for palliative care; Z68.23 Body mass index [BMI] 23.0-23.9, adult
CPT/HCPCS: 36415; 36573; 36600; 70553; 71045; 80048; 80185; 82375; 82805; 82962; 83605; 83735; 83880; 84100; 84484; 92610; 93005; 99285; A6261; A9577; C1725; C1893; J0696; J1100; J1165; J1170; J1650; J1953; J2060; J2250; J2405; J2543; J2765; J3010; J3370; J3490; J7030; J7050; J8540; J8597